=== PATIENT | male | born 1985 | race Two or more races ===

== ENCOUNTER 2024-05-26 08:02 | Emergency (ER) | payer OTHER ==
[~2024-05-26] VITALS: Ht 180.3 cm; Wt 111.1 kg
[2024-05-26] MEDS ORDERED: KETOROLAC TROMETHAMINE 60 MG VIAL IM STA (08:59)
[2024-05-26] MEDS ORDERED: KETOROLAC TROMETHAMINE 60 MG VIAL IM ONE (09:06)
== END 2024-05-26 13:11 | disposition home or self-care (01) ==
LOC: ER 08:05
DX: S52.121A Displaced fracture of head of right radius, initial encounter for closed fracture (principal); W18.39XA Other fall on same level, initial encounter; Y93.89 Activity, other specified; Y92.89 Other specified places as the place of occurrence of the external cause

== ENCOUNTER 2024-06-08 14:07 | Outpatient (CLI) | payer OTHER | END 2024-06-08 14:11 | disposition home or self-care (01) | LOC: RAD 14:07 | PROVIDERS: ATTEND Orthopaedic Surgery | DX: S52.125A Nondisplaced fracture of head of left radius, initial encounter for closed fracture (principal); X58.XXXA Exposure to other specified factors, initial encounter; Y93.9 Activity, unspecified; Y92.9 Unspecified place or not applicable; Y99.9 Unspecified external cause status ==

== ENCOUNTER 2024-07-05 08:14 | Outpatient (CLI) | payer OTHER | END 2024-07-05 08:21 | disposition home or self-care (01) | LOC: RAD 08:14 | PROVIDERS: ATTEND Orthopaedic Surgery | DX: M25.522 Pain in left elbow (principal) ==